=== PATIENT | female | born 1995 | race Caucasian/White ===

== ENCOUNTER 2018-06-20 08:05 | Day surgery (SDC) | payer OTHER ==
[2018-06-20 08:16] LABS: Specific Gravity 1.015 (1.005-1.030)
[2018-06-20] MEDS ORDERED: LIDOCAINE 2% MPF 5 ML VIAL ONE (08:20)
[2018-06-20] MEDS ORDERED: PROPOFOL 200 MG/20 ML VIAL IV ONE (08:20)
[2018-06-20] MEDS ORDERED: FENTANYL CITR 100 MCG/2 ML ONE ×2 (08:20→10:17)
[2018-06-20] MEDS ORDERED: ROCURONIUM 50 MG/5 ML VIAL IV ONE (08:20)
[2018-06-20] MEDS ORDERED: MIDAZOLAM HCL 2 MG/2 ML INJ ONE ×2 (08:20→09:23)
[2018-06-20] MEDS ORDERED: SCOPOLAMINE HYDROBROMIDE PATCH TD ONE (08:25)
[2018-06-20] MEDS ORDERED: Ringers Lactate 1,000 ML IV ONE ×4 (08:25→10:15)
[2018-06-20] MEDS ORDERED: CEFAZOLIN/SWI 1gm 1 GM/10 ML SYR ONE (08:25)
[2018-06-20] MEDS ORDERED: Mastisol Adhesive Liq ONE (09:01)
[2018-06-20] MEDS ORDERED: CEFAZOLIN SODIUM 1 GM/VIAL ONE ×2 (09:01→13:11)
[2018-06-20] MEDS ORDERED: GENTAMICIN SULF 80 MG/2ML INJ ONE (09:01)
[2018-06-20] MEDS ORDERED: NS 0.9% VIAL 20 ML ONE ×2 (09:01→10:06)
[2018-06-20] MEDS ORDERED: BACITRACIN 50000 UNIT VIAL ONE (09:02)
[2018-06-20] MEDS ORDERED: EPINEPHRINE/PF 1 MG/ML AMP ONE (09:19)
[2018-06-20] MEDS ORDERED: NA CHLORIDE 0.9% 1,000 ML ONE (09:19)
[2018-06-20] MEDS ORDERED: NS 0.9% VIAL 10 ML ONE ×4 (09:58→13:11)
[2018-06-20] MEDS ORDERED: ONDANSETRON 4 MG/2 ML VIAL ONE ×2 (09:58→17:12)
[2018-06-20] MEDS ORDERED: Phenylephrine HCl 10 MG/ML 1 ML VIAL ONE (09:58)
[2018-06-20] MEDS ORDERED: DEXAMETHASONE 4 MG/ML VIAL ONE (09:58)
[2018-06-20] MEDS ORDERED: MORPHINE 10 MG/ML VIAL ONE (10:02)
[2018-06-20] MEDS ORDERED: VECURONIUM 10 MG/VIAL IV ONE (10:09)
[2018-06-20] MEDS ORDERED: MEPERIDINE HCL 25 MG/0.5 ML ONE (10:17)
[2018-06-20] MEDS: MEPERIDINE HCL 50 MG/ML AMP ONE ×4 (14:57→15:12)
[2018-06-20] MEDS ORDERED: CODEINE 30MG/APAP 300MG TAB ONE (16:39)
--- NOTE | 2018-06-30 08:27 | OP ---
Surgeon: Bhavin Rouse MD Rock Splitter: Eliecer. Preoperative Diagnoses: Breast asymmetry and breast descent. Postoperative Diagnoses: Breast asymmetry and breast descent. Procedure Performed: Bilateral breast lift, reduction of the right fat transfer from abdomen to left . Anesthesia: General. Procedure In Detail: After satisfactory induction of general anesthesia, abdomen and breasts were pr epped with DuraPrep. Dry sterile drapes were applied in the usual manner. A #15 blade was used to m roger an incision in the iliac crest anteriorly and both sides. Then, tumescent was infused 500 cc per side. Then, it was aspirated with a 4-mm cannula. Approximately 600 cc were removed. I t was allowed to gravitate and separate for later injection. These wounds were closed with 4-0 PDS, tincture of benzoin, and Steri-Strips. Attention was turned to the breasts. A 45 template was used to outline the areola. Then, transverse and curvilinear inferior incisions were made. The interveni ng skin was de-epithelialized with a dermabrader or EpiCut. Then, transverse incision was made with electrocautery. Flap was thinned to approximately 1.2 cm and elevated cephalad toward the clavicle a nd sternum and anterior axillary line. This was done on both sides. On the right side, the patient then underwent excision of inferolateral breast tissue. This was excised with scalpel and electrocau abraham, and then conization was performed after the inferior incision was completed. Conization was pe rformed with 2-0 PDS suture, and then straps were elevated at 12 o'clock, 1:30 o'clock, and 3 o'clock positions on the right breast. Straps were then woven in and out of the pectoralis major muscle, an d sewn back to the base of the cone, back to the muscle, and eventually tied to themselves at the bas e of the cone. This was done for the 12 o'clock and 1:30 straps. 3 o'clock strap was sewn over the sternum at the 3 o'clock position with 2-0 Ethibond. The wound was carefully stapled shut. Attentio n was turned to the opposite breast. Identical procedure was performed with strap placeme nt. There was no tissue removed. The patient was sat up straight, and new nipple-areolar complex wa s marked out. Dog ears were marked out. Dog ears were excised, and then the wound was closed after a #10 ADI was brought out of the axilla and sewn in place with 2-0 silk and later closure consisted of 3-0 Vicryl on subcu and 3-0 PDS running subcuticular tied in the vertical meridian of the breast, do ne on both sides. After this, the patient was sat up again. The site for new nipple-areolar complex was marked out again, and then incision was made, and then fat transfer was performed to the left br east from the was introduced throughout the entire circumference of the breast, particular ly on the the inferior 6 o'clock position. Approximately 185 cc of fat was transferred. Then, a tincture of benzoin and Steri-Strips were applied, 5x5s, fluffs, and Miguel wrap. . The patient tolerated the procedure well and returned to Recovery. DONALD Voice ID: [id number] Report ID: [id number]
== END 2018-06-20 17:12 | disposition home or self-care (01) ==
LOC: OR 08:05
PROVIDERS: ATTEND Specialist
PROC: 0H0V0ZZ Alteration of Bilateral Breast, Open Approach (ICD-10-PCS; 2018-06-20)
PROC: 0H0 Skin and Breast, Alteration (ICD-10-PCS; 2018-06-20)
PROC: 0H0T0ZZ Alteration of Right Breast, Open Approach (ICD-10-PCS; principal; 2018-06-20 09:00)
DX: N64.81 Ptosis of breast (principal); N64.89 Other specified disorders of breast
CPT/HCPCS: 81025; 88305; J0171; J0690; J1580; J2175; J2250; J2370; J2405; J2704; J3010; J7030